=== PATIENT | female | born 1980 | race Caucasian/White ===

== ENCOUNTER → 2020-03-23 08:22 | Outpatient (CLI) | payer OTHER, SELFPAY ==
--- NOTE | ~2020-03-23 | MMUS_ITS ---
EXAMINATION: MM diagnostic [facility] BI w ike, US breast BI limited HISTORY: Six-month follow-up of probable benign bilateral breast findings TECHNIQUE: ML, MLO and cc full field and spot left MLO and cc 3-D tomosynthesis images were performed and synthetic 2-D images were generated. CAD analysis was submitted and interpreted. High resolution breast ultrasound was performed. COMPARISON: 06/02/2019 bilateral diagnostic mammography and bilateral Limited breast ultrasound 05/15/2019, 01/23/2018 bilateral digital screening mammogram examinations BREAST PARENCHYMAL COMPOSITION: The breasts are heterogeneously dense, which may obscure small masses . FINDINGS: MAMMOGRAPHIC FINDINGS: There is stable fibroglandular asymmetry. No suspicious mass or architectural distortion, malignant c alcification, skin thickening or retraction or significant new or developing density is detected. ULTRASOUND: The following findings are stable since 06/02/2019 bilateral breast ultrasound examinatio n. Right breast: 9:00 1 cm from nipple: 4.7 x 2.3 x 4.4 mm circumscribed hypoechoic lesion, without internal vasculari ty or posterior shadowing, likely benign 10:00 1 cm from nipple: Parallel circumscribed 2.1 x 3.8 x 4.4 mm hypoechoic lesion without internal vascularity or posterior shadowing, likely benign Left breast: 1:00 3 cm from nipple: 2.5 x 2.8 cm sonolucency with through transmission, consistent with small cyst IMPRESSION: 1. No mammographic evidence of malignancy or significant change since 06/02/2019 2. Routine mammographic screening is recommended. BI-RADS Category 2: Benign finding(s). Reviewed, dictated and finalized at location A. IMPRESSION: 1. No mammographic evidence of malignancy or significant change since 9 2. Routine mammographic screening is recommended. BI-RADS Category 2: Benign finding(s).
== END ==
PROVIDERS: PCP Physician Assistant Medical; Visit Provider Obstetrics & Gynecology Gynecology
DX: R92.8 Other abnormal and inconclusive findings on diagnostic imaging of breast (principal)
CPT/HCPCS: 76642; 77062; 77066; G0279

== ENCOUNTER 2021-04-20 07:55 | Outpatient (CLI) | payer BC, SELFPAY ==
[2021-04-20 08:30] LABS: Anion Gap 9 mmol/L (8-16); Blood Urea Nitrogen 9 mg/dL (7-17); Calcium 9.5 mg/dL (8.4-10.2); Carbon Dioxide 24 mmol/L (22-30); Chloride 107 mmol/L (98-107); Cholesterol 216 mg/dL (0-200); Estimated Glomerular Filt Rate > 60; Glucose 108 mg/dL (65-110); HDL Direct 102 mg/dL; Potassium 4.2 mmol/L (3.4-5.0); Sodium 140 mmol/L (137-145); Triglycerides 69 mg/dL (<150)
[2021-04-20 08:41] LABS: LDL Cholesterol Direct 101 mg/dL
== END 2021-04-20 07:56 | disposition home or self-care (01) ==
LOC: ANHLAB 07:58
PROVIDERS: PCP Physician Assistant Medical; Visit Provider Nurse Practitioner Family
DX: F41.9 Anxiety disorder, unspecified (principal); Z13.220 Encounter for screening for lipoid disorders
CPT/HCPCS: 36415; 80048; 80061; 84443

== ENCOUNTER → 2021-06-07 02:26 | Outpatient (CLI) | payer BC, SELFPAY ==
[2021-06-07 20:09] LABS: SARS-CoV-2 RNA PCR Positive
== END ==
PROVIDERS: PCP Family Medicine; Visit Provider Nurse Practitioner Family
DX: U07.1 COVID-19 (principal); R68.89 Other general symptoms and signs
CPT/HCPCS: C9803; U0003; U0005

== ENCOUNTER → 2022-01-13 10:36 | Outpatient (CLI) | payer BC, SELFPAY ==
--- NOTE | ~2022-01-13 | MM_ITS ---
EXAMINATION: MM screening [facility] BI w ike HISTORY: Screening mammogram TECHNIQUE: Craniocaudal and mediolateral oblique 3-D tomosynthesis images were obtained and synthetic 2-D images were generated. CAD analysis was submitted and interpreted. COMPARISON: 03/23/2020, 06/02/2019, 05/15/2019 BREAST PARENCHYMAL COMPOSITION: There are scattered areas of fibroglandular density. FINDINGS: There is no suspicious mass, calcification, or architectural distortion to suggest malignan cy in either breast. There has been no suspicious interval change. IMPRESSION: 1. No mammographic evidence of malignancy. 2. Recommend routine screening mammography in one year. BI-RADS Category 1: Negative Reviewed, dictated and finalized at location A.
== END ==
PROVIDERS: PCP Physician Assistant Medical; Visit Provider Obstetrics & Gynecology Gynecology
DX: Z12.31 Encounter for screening mammogram for malignant neoplasm of breast (principal)
CPT/HCPCS: 77063; 77067

== ENCOUNTER 2022-07-07 06:56 | Outpatient (CLI) | payer BC, SELFPAY ==
--- NOTE | ~2022-07-07 | XR_ITS ---
Supine and upright views of the abdomen Clinical history: Hematuria, left flank pain Findings: Bowel gas pattern is nonspecific. No evidence for obstruction or free air. 4 mm calcificati on noted in the left pelvis. Osseous structures are intact. Impression: 4 mm calcification projecting over the left pelvis. Distal left ureteral stone is a potential conside ration. Reviewed, dictated and finalized at [facility]. ERCIAL PORTFOLIO MANAGER Impression: 4 mm calcification projecting over the left pelvis. Distal left ureteral stone is a potential consideration.
[2022-07-07 07:27] LABS: Hematocrit 41.8 % (37.0-47.0); Mean Corpuscular HGB Conc 33.5 g/dl (32-36); Mean Corpuscular Hemoglobin 32.4 pg (26-34); Mean Corpuscular Volume 96.8 fl (80-100); Mean Platelet Volume 11.2 fl (7.4-10.4); Platelet Count Result 215 k/mm3 (150-375); Red Blood Count 4.32 M/mm3 (4.2-5.4); Red Cell Distribution Width 11.1 % (11.5-14.5); White Blood Count 7.1 K/mm3 (4.5-10.0)
[2022-07-07 07:37] LABS: Alanine Aminotransferase 15 U/L (6-35); Albumin Level 4.9 g/dL (3.5-5.1); Alkaline Phosphatase 48 U/L (38-126); Anion Gap 6 mmol/L (8-16); Aspartate Amino Transferase 21 U/L (14-36); Bilirubin,Total 0.6 mg/dL (0.2-1.3); Blood Urea Nitrogen 8 mg/dL (7-17); Calcium 9.5 mg/dL (8.4-10.2); Carbon Dioxide 26 mmol/L (22-30); Chloride 105 mmol/L (98-107); Cholesterol 258 mg/dL (0-200); Estimated Glomerular Filt Rate > 60; Glucose 118 mg/dL (65-110); HDL Direct 70 mg/dL; Potassium 3.7 mmol/L (3.4-5.0); Sodium 137 mmol/L (137-145); Triglycerides 163 mg/dL (<150)
[2022-07-07 07:49] LABS: LDL Cholesterol Direct 132 mg/dL
[2022-07-07 08:08] LABS: Vitamin D 25 Hydroxy 33.6 ng/mL
== END 2022-07-07 06:57 | disposition home or self-care (01) ==
PROVIDERS: PCP Family Medicine; Visit Provider Nurse Practitioner Family
DX: R31.9 Hematuria, unspecified (principal); R39.9 Unspecified symptoms and signs involving the genitourinary system; R93.5 Abnormal findings on diagnostic imaging of other abdominal regions, including retroperitoneum; E55.9 Vitamin D deficiency, unspecified; Z13.1 Encounter for screening for diabetes mellitus; Z13.220 Encounter for screening for lipoid disorders; Z13.29 Encounter for screening for other suspected endocrine disorder
CPT/HCPCS: 36415; 74018; 80053; 80061; 82306; 84443; 85027

== ENCOUNTER → 2023-05-17 12:12 | Outpatient (CLI) | payer BC, SELFPAY ==
--- NOTE | ~2023-05-17 | MM_ITS ---
EXAMINATION: MM screening [facility] BI w ike HISTORY: Screening TECHNIQUE: Craniocaudal and mediolateral oblique 3-D tomosynthesis images were obtained and synthetic 2-D images were generated. CAD analysis was submitted and interpreted. COMPARISON: Comparison to multiple prior studies sequentially, with oldest reviewed study dated 01/23. BREAST PARENCHYMAL COMPOSITION: There are scattered areas of fibroglandular density. FINDINGS: There is no evidence of suspicious mass, calcification, or architectural distortion to sugg est malignancy in either breast. There has been no suspicious interval change. IMPRESSION: 1. No mammographic evidence of malignancy. 2. Recommend routine screening mammography in one year. BI-RADS Category 1: Negative Reviewed, dictated and finalized at location A. LITIES ENGINEER
== END ==
PROVIDERS: PCP Obstetrics & Gynecology Gynecology; Visit Provider Obstetrics & Gynecology Gynecology
DX: Z12.31 Encounter for screening mammogram for malignant neoplasm of breast (principal)
CPT/HCPCS: 77063; 77067

== ENCOUNTER 2023-12-17 09:48 | Outpatient (CLI) | payer BC, SELFPAY | END 2023-12-17 09:49 | disposition home or self-care (01) | PROVIDERS: PCP Family Medicine; Visit Provider Physician Assistant Medical | DX: M79.671 Pain in right foot (principal) | CPT/HCPCS: 73630 ==

== ENCOUNTER 2024-10-09 07:14 | Outpatient (CLI) | payer BC, SELFPAY ==
[2024-10-09 08:22] LABS: LDL Cholesterol Direct 117 mg/dL
[2024-10-09 08:26] LABS: Anion Gap 10 mmol/L (4-12); Blood Urea Nitrogen 8 mg/dL (7-17); Calcium 9.6 mg/dL (8.4-10.2); Carbon Dioxide 25 mmol/L (22-30); Chloride 106 mmol/L (98-107); Cholesterol 273 mg/dL (0-200); Estimated Glomerular Filt Rate > 60; Glucose 111 mg/dL (65-110); HDL Direct 103 mg/dL; Potassium 3.6 mmol/L (3.4-5.0); Sodium 141 mmol/L (137-145); Triglycerides 102 mg/dL (<150)
[2024-10-09 08:38] LABS: Vitamin D 25 Hydroxy 46.2 ng/mL
[2024-10-10 07:24] LABS: FSH 19.7 mIU/mL; LH 11.5 mIU/mL
[2024-10-13 14:17] LABS: Estrogen 283 pg/mL
== END 2024-10-09 07:15 | disposition home or self-care (01) ==
LOC: ANHLAB 07:17
PROVIDERS: PCP Family Medicine; Referring Provider Dermatology; Visit Provider Nurse Practitioner Family
DX: Z13.220 Encounter for screening for lipoid disorders (principal); Z13.1 Encounter for screening for diabetes mellitus; Z13.29 Encounter for screening for other suspected endocrine disorder; E55.9 Vitamin D deficiency, unspecified; N92.6 Irregular menstruation, unspecified; Z79.899 Other long term (current) drug therapy
CPT/HCPCS: 36415; 80048; 80061; 82306; 82672; 83001; 83002; 84443